=== PATIENT | male | born 2000 | race African-American/Black ===

== ENCOUNTER 2022-11-23 11:59 | Emergency (ER) | payer SELFPAY ==
[~2022-11-23] VITALS: Ht 172.7 cm; Wt 98.8 kg
[2022-11-23 11:59] VITALS: BP 150/70
[2022-11-23] MEDS ORDERED: NAPR-837 PO (13:00)
[2022-11-23] MEDS ORDERED: REGL10TA6 PO (13:01)
== END 2022-11-23 13:54 | disposition home or self-care (01) ==
LOC: M ED 11:59
DX: R51.9 Headache, unspecified (principal); F17.290 Nicotine dependence, other tobacco product, uncomplicated; Z79.899 Other long term (current) drug therapy

== ENCOUNTER 2023-06-22 10:09 | Emergency (ER) | payer OTHER, MEDICARE ==
[~2023-06-22] VITALS: Ht 172.7 cm; Wt 104.0 kg
[~2023-06-22 10:09] MED LIST: NAPR-837 PO; REGL10TA6 PO
[2023-06-22 10:12] VITALS: TEMP 97.9
[2023-06-22 13:03] VITALS: BP 131/75; O2SAT 100
== END 2023-06-22 13:07 | disposition home or self-care (01) ==
LOC: M ED 10:09
DX: T15.90XA Foreign body on external eye, part unspecified, unspecified eye, initial encounter (principal); X58.XXXA Exposure to other specified factors, initial encounter; Y92.89 Other specified places as the place of occurrence of the external cause; Y93.89 Activity, other specified; Y99.0 Civilian activity done for income or pay